=== PATIENT | male | born 1945 | race Caucasian/White ===

== ENCOUNTER → 2023-11-27 15:46 | Outpatient (REF) | payer MEDICARE, OTHER, SELFPAY ==
[2023-11-30 07:51] LABS: ANA, IgG Reflex to HEp-2 Detected (None Detected)
[2023-11-30 19:14] LABS: SSA 52 (Ro)(ENA) Ab, IgG 7 AU/mL (0-40); SSA 60 (Ro)(ENA) Ab, IgG 0 AU/mL (0-40); SSB (La)(ENA) Ab, IgG 0 AU/mL (0-40)
[2023-12-03 07:21] LABS: ANA, HEp-2, IgG <1:80 (<1:80)
== END ==
LOC: REG 15:46
PROVIDERS: ATTENDING PHYSICIAN Dermatology Dermatopathology; FAMILY PHYSICIAN Internal Medicine
DX: L30.9 Dermatitis, unspecified (principal)
CPT/HCPCS: 36415; 86038; 86039; 86235

== ENCOUNTER → 2024-04-22 12:09 | Outpatient (REF) | payer MEDICARE, OTHER, SELFPAY ==
[2024-04-22 15:07] LABS: PSA, Total - Diagnostic 0.77 ng/ml (0.0-4.0)
== END ==
LOC: REG 12:09
PROVIDERS: ATTENDING PHYSICIAN Surgery; FAMILY PHYSICIAN Internal Medicine
DX: N40.1 Benign prostatic hyperplasia with lower urinary tract symptoms (principal)
CPT/HCPCS: 36415; 84153

== ENCOUNTER → 2024-09-08 14:43 | Outpatient (REF) | payer MEDICARE, OTHER, SELFPAY | LOC: RAD 14:43 | PROVIDERS: ATTENDING PHYSICIAN Nurse Practitioner Adult Health; FAMILY PHYSICIAN Internal Medicine | DX: M79.604 Pain in right leg (principal) | CPT/HCPCS: 93971 ==

== ENCOUNTER 2024-09-08 15:35 | Emergency (ER) | payer MEDICARE, OTHER, SELFPAY ==
[2024-09-08 15:41] VITALS: BP 138/81
--- NOTE | 2024-09-08 17:07 | ED.GENMED ---
History of Present Illness
<Julia Mir PA-C - Last Filed: 09/09/24 00:56>
General
Chief Complaint: DVT/Possible Blood Clot
Source: patient and spouse ( at bedside)
Exam Limitations: none
Time Seen by Provider: 09/08/24 16:43
Nursing documentation reviewed up to this point in time: agreed with
History of Present Illness
History of Present Illness:
Patient is a 79-year-old male with history hypertension presenting to the emergency department after outpatient ultrasound showed DVT of right lower extremity. Patient states that he has had a few weeks of right hip/thigh pain which she was
attributing to sciatica pain as he does have a history of this. However�this morning he states pain was more severe and he noticed swelling of his right leg. He was seen by his primary care provider who sent him for an outpatient ultrasound which
showed an extensive DVT of RLE and sent to the ED for further evaluation.
Patient denies any chest pain or shortness of breath. Patient denies any fever. Patient denies any dizziness/lightheadedness. No numbness/tingling in RLE.
Patient has no history of blood clots. No recent long travel or surgery. Patient takes a baby aspirin daily, otherwise no thinners.
Past History
<Julia Mir PA-C - Last Filed: 09/09/24 00:56>
Past History
ED Past Medical History: HTN
ED Past Surgical History: Appendectomy
Social History
Tobacco: Non-smoker
Alcohol: Occasional
Drug: None
Living: with family
Family History
Family History: Negative Diabetes, Hypertension or CAD
Review of Systems
<Julia Mir PA-C - Last Filed: 09/09/24 00:56>
Review of Systems
Allergies reviewed?: Yes
All Other Systems: ROS reviewed and negative except as documented in HPI and ROS
Phy Exam
<Julia Mir PA-C - Last Filed: 09/09/24 00:56>
Physical Exam
Physical Exam:
Vitals: Mildly hypertensive, otherwise vital signs are stable. Afebrile
General: Patient is well appearing, no acute distress. Nontoxic appearing
Skin: Warm and dry, no rashes or lesions
Head: Normocephalic, atraumatic
Eyes: Sclera nonicteric. EOMs intact. No nystagmus.
Throat: Protecting airway
Neck: Normal ROM, no cervical spine tenderness, no meningismus
Cardiac: Regular rate and rhythm, no murmurs.
Pulm: Normal respiratory effort, no wheezes, rales, rhonchi heard on exam. O2 saturation 98 on room air.
Abdomen: No abdominal tenderness.
Extremities: Mild erythema and edema of right lower extremity. Very mild calf tenderness. Palpable femoral, popliteal, and DP pulse of RLE. Cap refill WNL. Patient has full active range of motion right lower extremity. Negative Homans' sign
bilaterally.
Neuro: AAOx3. CN II-XII intact. No focal neurologic deficits.
Psychiatric: Normal affect.
Course
<Julia Mir PA-C - Last Filed: 09/09/24 00:56>
Orders/Labs/Results
Orders:
Orders
09/08/24 17:40
Basic Metabolic Panel Urgent
Complete Blood Count/With Diff Urgent
09/08/24 18:36
Apixaban [Eliquis] 10 mg PO NOW STA
Abnormal Lab Results
09/08/24
17:40
MCH 32.2 H pg
(27.0-31.0)
Absolute Monos (auto) 0.9 H 10^3/uL
(0.1-0.6)
Monocytes % 10.3 H %
(1.7-9.3)
BUN 22 H mg/dl
(9-20)
09/08/24 17:40
09/08/24 17:40
Vital Signs
Initial and Last Documented VS:
Initial Vital Signs
Temp Pulse Resp BP Pulse Ox
97.8 F 87 18 138/81 98
09/08/24 15:41 09/08/24 15:41 09/08/24 15:41 09/08/24 15:41 09/08/24 15:41
Last Documented Vital Signs
Temp Pulse Resp BP Pulse Ox
97.8 F 85 18 135/82 98
09/08/24 15:41 09/08/24 18:45 09/08/24 18:45 09/08/24 18:45 09/08/24 18:45
<Bobby Cabral MD - Last Filed: 09/08/24 18:35>
Orders/Labs/Results
Orders:
Orders
09/08/24 17:40
Basic Metabolic Panel Urgent
Complete Blood Count/With Diff Urgent
09/08/24 18:36
Apixaban [Eliquis] 10 mg PO NOW STA
Abnormal Lab Results
09/08/24
17:40
MCH 32.2 H pg
(27.0-31.0)
Absolute Monos (auto) 0.9 H 10^3/uL
(0.1-0.6)
Monocytes % 10.3 H %
(1.7-9.3)
BUN 22 H mg/dl
(9-20)
09/08/24 17:40
09/08/24 17:40
Vital Signs
Initial and Last Documented VS:
Initial Vital Signs
Temp Pulse Resp BP Pulse Ox
97.8 F 87 18 138/81 98
09/08/24 15:41 09/08/24 15:41 09/08/24 15:41 09/08/24 15:41 09/08/24 15:41
Last Documented Vital Signs
Temp Pulse Resp BP Pulse Ox
97.8 F 85 18 135/82 98
09/08/24 15:41 09/08/24 18:45 09/08/24 18:45 09/08/24 18:45 09/08/24 18:45
<Julia Mir PA-C - Last Filed: 09/09/24 00:56>
MDM/Problems Addressed
Differential Diagnosis Includes:
Not limited to: DVT, superficial venous thrombosis, PE,
MDM/Problems Addressed:
71-year-old male presents with right lower extremity DVT. No associated chest pain or shortness of breath. No numbness/tingling in right lower extremity. Patient is stable vital signs. He is not tachycardic or hypoxic. On exam�patient is
extremely well-appearing. Cardio/pulmonary assessment unremarkable. Mild erythema and edema of right lower extremity with palpable pulses and normal neurovascular exam. Ultrasound report reviewed from outpatient which does show a rather extensive
DVT right lower extremity. Occlusive thrombus noted from right popliteal, peroneal, and posterior tibial veins. Nonocclusive thrombus in right femoral vein. This was discussed with vascular surgery on-call, Dr. Terry. Per vascular�no indication
for surgical intervention. Recommend initiation of oral anticoagulation, Eliquis and discharge home. Patient has no symptoms concerning for PE. Basic lab work was obtained which shows normal renal function, normal hemoglobin, and no
thrombocytopenia.
Lengthy discussion with patient regarding initiation of Eliquis and treatment plan. Prescription sent to pharmacy for 1 month supply. Discussed importance of following up with hematology for further extension of prescription. Patient given first
dose of Eliquis in emergency department today. Very close return precautions discussed. Patient stable for discharge home with hematology/primary care follow-up.
Chronic conditions affecting care:
Hypertension
Acute Exacerbation and/or Progression of Chronic Illness:
Acutely hypertensive
<Julia Mir PA-C - Last Filed: 09/09/24 00:56>
*Pulse Oximetry
Patient hypoxic: no
*EKG
Interpreted by ED Provider?: NA
*Gold Wheel Blocker And Polisher Interpretation
Rate: Gold Wheel Blocker And Polisher- N/A
*Critical Care Note
Total Time (30-74mins, 75-104mins- exclusive of procedures): Not Applicable
Data Reviewed
Review of Other/Old Records Reveals: Radiology Studies (Right lower extremity ultrasound formed outpatient showing DVT right lower extremity)
Source: previous radiology exam
<Julia Mir PA-C - Last Filed: 09/09/24 00:56>
Patient Management
Discussion with other providers: Crosscutter (Vascular surgery-Dr. Terry)
ED Attending Note
<Julia Mir PA-C - Last Filed: 09/09/24 00:56>
-
Portions of this chart may have been created with voice recognition software.� Occasional wrong word or��sound alike� substitutions may have occurred due to the inherent limitations of voice recognition software.
<Bobby Cabral MD - Last Filed: 09/08/24 18:35>
ED Attending Note
Patient seen and examined by attending physician: Yes
ED Attending Note:
I have seen and evaluated the patient with a [id number] encounter. I have spoken to the advance practicer provider and involved in the medical history, the physical exam, medical decision making.
Evaluation and management service: agree unless noted differently below.
Results interpretation: agree unless noted differently below.
Focused HPI: 79-year-old male with history as documented presents to the ER for evaluation of right leg pain and swelling�found to have DVT on outpatient study. Patient says that he noticed some aching pain about 2 weeks ago that he attributed to
sciatica but since then has had increased pain and swelling and ultimately was referred for an outpatient ultrasound which showed right lower extremity DVT. He does report that a recent flight to [place] about 4 weeks ago. No prior history of
clots. He denies any chest pain or shortness of breath or any other complaints.
Physical exam: Awake alert no distress. Vital signs normal. No cardiac rubs gallops or murmurs and regular rate. His lungs are clear to auscultation. He does have trace edema in the right lower extremity. Extremity is warm to the touch with
brisk capillary refill. He has strong femoral, DP and PT pulse in the right lower extremity. He does have some mild calf tenderness.
Medical Decision Makin-year-old male presents with a right lower extremity DVT. He has clot in essentially entire calf with nonocclusive clot in the femoral vein. PA discussed case with vascular surgery�no indication for operative
intervention recommended treating with [facility]. I had a long discussion with patient about treatment plan and follow-up plan. He feels comfortable with this. We spoke about return precautions all questions answered.
Discharge Plan
Departure
Patient Disposition: Home (Routine Discharge)
Date of Disposition: 09/08/24
Time of Disposition: 18:27
Patient with high blood pressure during this ER visit?: Yes
Condition: Good
Covid-19: Not Applicable
Discharge Problem:
Deep vein thrombosis (DVT) of right lower extremity
Instructions: Deep Vein Thrombosis (Blood Clots in the Legs) (DC), Apixaban, BLOOD PRESSURE
Prescriptions:
New
Eliquis 5 mg tablet
See Rx Instructions .ROUTE .COMPLEX Qty: 74 0RF
Rx Instructions:
Take 2 tabs PO BID x 1 week, then 1 tab PO BID
No Action
aspirin 81 MG tablet,delayed release (DR/EC)
81 mg PO DAILY
lisinopril 10 MG tablet
5 mg PO DAILY
indomethacin 50 MG capsule
50 mg PO Q8H Qty: 15 0RF
Rx Instructions:
Take for 3-5 days to reduce pain of gouty arthritis
ondansetron HCl 4 MG tablet
4 mg PO Q8HPRN PRN (Reason: nausea or vomiting) Qty: 10 0RF
meclizine 25 MG tablet
25 mg PO Q8H Qty: 21 0RF
Referrals:
Cori,Ari I., DO [Family Provider] -
Cris Manley MD [Active] - Call in 1-3 days for appt
Activity Restrictions/Additional Instructions:
RETURN TO THE EMERGENCY DEPARTMENT WITH ANY CHEST PAIN, SHORTNESS OF BREATH/DIFFICULTY BREATHING, INTRACTABLE PAIN, NUMBNESS/TINGLING IN RIGHT LEG, ANY TRAUMATIC HEAD INJURY, WORSENING IN CURRENT SYMPTOMS, OR ANY OTHER CONCERNS
-As discussed- your ultrasound did show a blood clot in your right leg.
-A prescription for Eliquis has been sent to your pharmacy. You should take this as directed. It is 2 tablets (10 mg) twice a day for the first week and then 1 tablet (5 mg twice a day. I have sent you a 1 month supply. This prescription will
likely need to be continued and should be prescribed by hematology or your primary care provider. This is a blood thinning medication and put you at increased risk of bleeding. Please return to the emergency department W/ any head injury.
-As discussed�given that you are starting Eliquis, you should discontinue your aspirin. Follow-up with your primary care prior to resuming this medication. You should avoid any other NSAIDs while taking Eliquis including Advil, Motrin, Aleve, etc.
-You must follow-up with hematology for further evaluation/management of your blood clot and to extend Eliquis prescription. The contact information has been provided for you above.
Monitor your symptoms closely and return to the emergency department with any acute worsening/new symptoms or any other concern
Interventions
Interventions:
*Risk Screen - Suicide Last Done: 09/08/24 15:41
*General Assessment Last Done: 09/08/24 15:41
*Neglect/Abuse Screening Last Done: 09/08/24 15:41
*ED COVID-19 Vaccine History Last Done: 09/08/24 16:07
*Nursing Disposition Last Done: 09/08/24 18:45
ED- Cardiac Assessment Last Done: 09/08/24 16:07
ED- Pulmonary Assessment Last Done: 09/08/24 16:07
ED-Peripheral Vascular Assessment Last Done: 09/08/24 16:07
ED-Skin Assessment Last Done: 09/08/24 16:07
Discharge Date and Time
Discharge Date/Time: 09/08/24 18:47
Print Language: IRISH
[2024-09-08 17:56] LABS: % Basophils 0.8 % (0-2); % Eosinophils 1.6 % (0-6); % Immature Granulocytes 0.3 % (0-0.5); % Lymphocytes 23.6 % (20.5-51.1); % Monocytes 10.3 % (1.7-9.3); % Neutrophils 63.4 % (42.2-75.2); Absolute Basophils 0.1 10^3/uL (0-0.2); Absolute Eosinophils 0.1 10^3/uL (0-0.7); Absolute Lymphocytes 2.1 10^3/uL (1.2-3.4); Absolute Monocytes 0.9 10^3/uL (0.1-0.6); Absolute Neutrophils 5.6 10^3/uL (1.4-6.5); Hematocrit 44.7 % (39.0-52.0); Hemoglobin 15.7 g/dL (13.0-18.0); Mean Corp Hgb Conc. 35.1 g/dL (33.0-37.0); Mean Corpuscular Hgb 32.2 pg (27.0-31.0); Mean Corpuscular Volume 91.6 fL (80.0-94.0); Mean Platelet Volume 9.2 fL (7.4-10.4); Nucleated Red Blood Cells % 0 % (-); Platelet Count 161 10^3/uL (130-400); Red Blood Cell Count 4.88 10^6/uL (4.70-6.10); Red Cell Dist. Width 12.9 % (11.5-14.5); White Blood Cell Count 8.9 10^3/uL (4.8-10.8)
[2024-09-08 18:07] LABS: Blood Urea Nitrogen 22 mg/dl (9-20); Calcium 9.9 mg/dl (8.4-10.2); Carbon Dioxide 29 mmol/L (22-30); Chloride 100 mmol/L (98-107); Glucose 77 mg/dl (70-99); Potassium 4.6 mmol/L (3.5-5.1); Sodium 136 mmol/L (135-145); eGFR > 60.00
[2024-09-08] MEDS: ELIQUIS 10 MG PO (18:39)
[2024-09-08 18:45] VITALS: BP 135/82
== END 2024-09-08 18:47 | disposition home or self-care (01) ==
LOC: EMR 15:35
PROVIDERS: Physician Assistant; EMERGENCY PHYSICIAN Emergency Medicine; FAMILY PHYSICIAN Internal Medicine
DX: I82.431 Acute embolism and thrombosis of right popliteal vein (principal); I82.451 Acute embolism and thrombosis of right peroneal vein; I82.441 Acute embolism and thrombosis of right tibial vein; I82.411 Acute embolism and thrombosis of right femoral vein; I10 Essential (primary) hypertension; Z90.49 Acquired absence of other specified parts of digestive tract
CPT/HCPCS: 99283; 80048; 85025

== ENCOUNTER → 2024-09-18 09:20 | Outpatient (REF) | payer MEDICARE, OTHER, SELFPAY ==
[2024-09-18 10:36] LABS: D-Dimer 1.32 ug/mlFEU (0.00-0.50)
== END ==
LOC: REG 09:20
PROVIDERS: ATTENDING PHYSICIAN Internal Medicine Hematology & Oncology; FAMILY PHYSICIAN Internal Medicine
DX: I82.401 Acute embolism and thrombosis of unspecified deep veins of right lower extremity (principal)
CPT/HCPCS: 36415; 85379

== ENCOUNTER → 2024-10-29 07:42 | Outpatient (REF) | payer MEDICARE, OTHER, SELFPAY ==
[2024-10-30 22:27] LABS: PSA Total 0.8 ng/mL (0.0-4.0)
== END ==
LOC: RAD 07:42
PROVIDERS: ATTENDING PHYSICIAN Nurse Practitioner Adult Health; FAMILY PHYSICIAN Internal Medicine
DX: R06.02 Shortness of breath (principal); I82.401 Acute embolism and thrombosis of unspecified deep veins of right lower extremity; N40.1 Benign prostatic hyperplasia with lower urinary tract symptoms
CPT/HCPCS: 36415; 71046; 84153; 84154

== ENCOUNTER → 2024-11-20 09:13 | Outpatient (REF) | payer MEDICARE, OTHER, SELFPAY ==
[2024-11-20 09:59] LABS: % Eosinophils 3.7 % (0-6); % Immature Granulocytes 0.3 % (0-0.5); % Lymphocytes 33.6 % (20.5-51.1); % Monocytes 6.4 % (1.7-9.3); Absolute Basophils 0.1 10^3/uL (0-0.2); Absolute Eosinophils 0.2 10^3/uL (0-0.7); Absolute Monocytes 0.4 10^3/uL (0.1-0.6); Absolute Neutrophils 3.3 10^3/uL (1.4-6.5); Hematocrit 47.3 % (39.0-52.0); Hemoglobin 15.8 g/dL (13.0-18.0); Mean Corp Hgb Conc. 33.4 g/dL (33.0-37.0); Mean Corpuscular Hgb 31.7 pg (27.0-31.0); Mean Platelet Volume 9.4 fL (7.4-10.4); Nucleated Red Blood Cells % 0 % (-); Platelet Count 163 10^3/uL (130-400); Red Blood Cell Count 4.98 10^6/uL (4.70-6.10); Red Cell Dist. Width 13.2 % (11.5-14.5)
[2024-11-20 10:32] LABS: ALT (SGPT) 29 U/L (0-50); AST (SGOT) 22 U/L (17-59); Alkaline Phosphatase 64 U/L (38-126); Blood Urea Nitrogen 20 mg/dl (9-20); Calcium 9.6 mg/dl (8.4-10.2); Carbon Dioxide 31 mmol/L (22-30); Chloride 105 mmol/L (98-107); Glucose 115 mg/dl (70-99); HDL Cholesterol 48 mg/dl; LDL Cholesterol, Calculated 78 mg/dl; Potassium 4.4 mmol/L (3.5-5.1); Sodium 143 mmol/L (135-145); Total Bilirubin 0.9 mg/dl (0.2-1.3); Total Cholesterol 145 mg/dl (50-199); Total Protein 6.3 g/dl (6.3-8.2); Triglyceride 95 mg/dl (10-149); Very Low Density Lipoprotein 19 mg/dl (0-30); eGFR > 60.00
[2024-11-20 10:52] LABS: TSH Reflex To Free T4 2.71 uIU/ml (0.47-4.68)
[2024-11-20 11:57] LABS: Albumin 4.1 g/dl (3.5-5.0)
== END ==
LOC: REG 09:13
PROVIDERS: ATTENDING PHYSICIAN Internal Medicine
DX: I10 Essential (primary) hypertension (principal); R53.82 Chronic fatigue, unspecified; E78.5 Hyperlipidemia, unspecified; R73.09 Other abnormal glucose
CPT/HCPCS: 36415; 80053; 80061; 84443; 85025

== ENCOUNTER → 2024-12-19 08:39 | Outpatient (REF) | payer MEDICARE, OTHER, SELFPAY ==
[2024-12-19 10:10] LABS: Blood Urea Nitrogen 24 mg/dl (9-20); Carbon Dioxide 29 mmol/L (22-30); Chloride 102 mmol/L (98-107); Glucose 120 mg/dl (70-99); Potassium 4.7 mmol/L (3.5-5.1); Sodium 141 mmol/L (135-145); eGFR > 60.00
[2024-12-19 10:21] LABS: NT-proBNP 34.5 pg/ml
[2024-12-19 12:22] LABS: D-Dimer < 0.27 ug/mlFEU (0.00-0.50)
[2024-12-21 10:32] LABS: Cardiolipin IgA Antibody <10 APL (<=11); Cardiolipin IgM Antibody <10 MPL (<=12); Cardiolipin Igg Antibody <10 GPL (<=14)
[2024-12-21 14:11] LABS: Anti-Thrombin III Activity 108 % (76-128)
[2024-12-21 18:25] LABS: Protein S Total Antigen 122 % (84-134)
[2024-12-22 08:09] LABS: Beta-2-Glycoprotein I Ab. IgA <10 SAU (<=20)
== END ==
LOC: REG 08:39
PROVIDERS: ATTENDING PHYSICIAN Internal Medicine Cardiovascular Disease; FAMILY PHYSICIAN Internal Medicine Hematology & Oncology
DX: I82.401 Acute embolism and thrombosis of unspecified deep veins of right lower extremity (principal); I10 Essential (primary) hypertension; I71.9 Aortic aneurysm of unspecified site, without rupture; R60.0 Localized edema
CPT/HCPCS: 36415; 80048; 81240; 81241; 83880; 84586; 85300; 85305; 85379; 85610; 85613; 85730; 86146; 86147

== ENCOUNTER → 2025-04-03 16:07 | Outpatient (REF) | payer MEDICARE, OTHER, SELFPAY ==
[2025-04-03 17:41] LABS: D-Dimer < 0.27 ug/mlFEU (0.00-0.50)
== END ==
LOC: RAD 16:07
PROVIDERS: ATTENDING PHYSICIAN Internal Medicine Hematology & Oncology; FAMILY PHYSICIAN Internal Medicine
DX: I82.401 Acute embolism and thrombosis of unspecified deep veins of right lower extremity (principal); M79.604 Pain in right leg
CPT/HCPCS: 36415; 85379; 93971

== ENCOUNTER → 2025-04-15 14:58 | Outpatient (REF) | payer MEDICARE, OTHER, SELFPAY | LOC: RCS 14:58 | PROVIDERS: ATTENDING PHYSICIAN Internal Medicine Cardiovascular Disease; FAMILY PHYSICIAN Internal Medicine | DX: I10 Essential (primary) hypertension (principal); I71.9 Aortic aneurysm of unspecified site, without rupture; R60.0 Localized edema | CPT/HCPCS: 93306 ==

== ENCOUNTER → 2025-05-01 09:23 | Outpatient (REF) | payer MEDICARE, OTHER, SELFPAY ==
[2025-05-01 10:10] LABS: D-Dimer < 0.27 ug/mlFEU (0.00-0.50)
== END ==
LOC: REG 09:23
PROVIDERS: ATTENDING PHYSICIAN Internal Medicine Hematology & Oncology; FAMILY PHYSICIAN Internal Medicine
DX: I82.401 Acute embolism and thrombosis of unspecified deep veins of right lower extremity (principal)
CPT/HCPCS: 36415; 85379

== ENCOUNTER → 2025-07-08 14:43 | Outpatient (REF) | payer MEDICARE, OTHER, SELFPAY ==
[2025-07-08 16:14] LABS: D-Dimer 0.29 ug/mlFEU (0.00-0.50)
== END ==
LOC: REG 14:43
PROVIDERS: ATTENDING PHYSICIAN Internal Medicine Hematology & Oncology; FAMILY PHYSICIAN Internal Medicine
DX: I82.401 Acute embolism and thrombosis of unspecified deep veins of right lower extremity (principal)
CPT/HCPCS: 36415; 85379

== ENCOUNTER → 2025-08-31 15:17 | Outpatient (REF) | payer MEDICARE, OTHER, SELFPAY ==
[2025-08-31 15:47] LABS: D-Dimer 0.42 ug/mlFEU (0.00-0.50)
== END ==
LOC: REG 15:17
PROVIDERS: ATTENDING PHYSICIAN Internal Medicine Hematology & Oncology
DX: I82.401 Acute embolism and thrombosis of unspecified deep veins of right lower extremity (principal)
CPT/HCPCS: 36415; 85379